=== PATIENT | male | born 1980 | race Two or more races ===

== ENCOUNTER 2019-12-28 14:47 | Inpatient (IN) | payer OTHER ==
[~2019-12-28] VITALS: Ht 190.5 cm; Wt 143.9 kg
[2019-12-28] MEDS ORDERED: SODIUM CHLORIDE 0.9% 1,000 ML IV ONE ×2 (15:00)
[2019-12-28] MEDS ORDERED: TAMSULOSIN HYDROCHLORIDE 0.4 MG CAP PO ONE (15:15)
[2019-12-28] MEDS ORDERED: ONDANSETRON HCL 4 MG/2 ML VIAL IV ONE (15:15)
[2019-12-28] MEDS ORDERED: KETOROLAC TROMETH 30 MG/ML 1ML VIAL IV ONE (15:15)
[2019-12-28 15:36] LABS: Basophils # (auto) 0.1 10 ^3/uL (0-0.2); Basophils % (auto) 0.5 % (0.0-2.0); Eosinophils # (auto) 0.3 10 ^3/uL (0-0.8); Eosinophils % (auto) 2.5 % (0.0-7.0); Hemoglobin 15.6 g/dL (13.5-17.5); Lymphocytes # (auto) 2.1 10 ^3/uL (0.4-5.4); Lymphocytes % (auto) 20.6 % (10.0-50.0); Mean Corpuscular Hemoglobin 30.7 pg (28.0-32.0); Mean Corpuscular Hgb Conc. 34.6 g/dL (32.0-36.0); Mean Corpuscular Volume 88.9 fL (80.0-100.0); Monocytes # (auto) 0.6 10 ^3/uL (0-1.3); Monocytes % (auto) 5.5 % (0.0-12.0); Neutrophils # (auto) 7.3 10 ^3/uL (1.6-8.6); Neutrophils % (auto) 70.9 % (37.0-80.0); Nucleated Red Blood Cells % 0.1 %; Platelet Count (auto) 192 10^3/uL (140-450); Red Blood Cells 5.06 10^6/uL (4.5-5.90); Red Cell Distribution Width 14.4 % (11.8-14.3); White Blood Cell 10.3 10^3/uL (4.4-10.8)
[2019-12-28 15:50] LABS: INR 1.01 (0.9-1.15); Partial Thromboplastin Time 32.2 sec (23.0-31.2)
[2019-12-28 15:58] LABS: Alanine Aminotransferase 37 U/L (16-61); Anion Gap 7 (5-15); Aspartate Aminotransferase 18 U/L (15-37); BUN/Creatinine Ratio 11.6; Blood Urea Nitrogen 10 mg/dL (7-18); Calcium 8.3 mg/dL (8.5-10.1); Carbon Dioxide 26 mmol/L (21-32); Chloride 106 mmol/L (98-107); GFR African American 129 mL/min; GFR Non-African American 106 mL/min; Glucose 96 mg/dL (74-106); Sodium 139 mmol/L (136-145)
[2019-12-28 16:04] LABS: Alkaline Phosphatase 109 U/L (45-117); Bilirubin, Total 0.6 mg/dL (0.2-1.0); Total Protein 7.9 g/dL (6.4-8.2)
[2019-12-28] MEDS ORDERED: D5W/SOD CHL 0.45% 1,000 ML IV ONE (17:15)
[2019-12-28] MEDS ORDERED: MORPHINE SULF INJ 2 MG/ML SYRINGE 1ML IV PRN (17:15)
[2019-12-28] MEDS ORDERED: NITROGLYCERIN 0.4 MG SL TAB SL PRN (17:15)
[2019-12-28] MEDS ORDERED: ACETAMINOPHEN 325 MG TAB PO PRN ×2 (17:15→20:30)
[2019-12-28] MEDS ORDERED: DEXTROSE (50%) 50ML SYRG IV PRN (20:30)
[2019-12-28 21:06] LABS: Urine Bacteria MOD /hpf (None Seen); Urine Blood Negative /uL (Negative); Urine Mucus FEW (None Seen); Urine WBC 47 /hpf (0 - 3)
[2019-12-28] MEDS: InsuLIN REG 1unit/0.01ml Soln (100units/ml) SC SCH (21:51)
[2019-12-28] MEDS: ACCU-CHEK COMFORT CURVE STRIP VI SCH (21:51)
[2019-12-28 22:03] VITALS: BP 136/86
[2019-12-29 05:00] VITALS: BP 116/69
[2019-12-29] MEDS: InsuLIN REG 1unit/0.01ml Soln (100units/ml) SC SCH ×4 (06:24→22:00)
[2019-12-29] MEDS: ACCU-CHEK COMFORT CURVE STRIP VI SCH ×4 (06:24→22:32)
--- NOTE | 2019-12-29 07:59 | NUR ---
ADMISSION 12/28/19 AT 1830 MS admit from ER KAREN,ULISES admitted to [facility]/MS after SBAR received LAST NIGHT AT 1830. Patient oriented to SARAHY CANDELARIO RN primary RN, broughton, 14, A,and unit policies regarding patient care and visiting hours. Patient weighed by bedscale and encouraged to call if they need something. All questions and concerns addressed, patient verbalized understanding.Patient was with guards.
[2019-12-29 09:00] VITALS: BP 130/81
[2019-12-29] MEDS ORDERED: metFORMIN HYDROCHLORIDE 500 MG TAB PO SCH (10:00)
[2019-12-29] MEDS ORDERED: levoFLOXacin 500MG 100 ML IV ONE (10:30)
[2019-12-29 12:53] VITALS: BP 125/70
[2019-12-29] MEDS: traMADol HCL 50 MG TAB PO PRN ×2 (14:06→22:34)
[2019-12-29] MEDS ORDERED: IOHEXOL 300 MG/ML 100ML BOTTLE IJ ONE (15:12)
[2019-12-29 16:30] VITALS: BP 128/73
[2019-12-29 22:00] VITALS: BP 131/79
--- NOTE | 2019-12-29 23:16 | NUR ---
MD [facility] PATIENT IS COMPLAINING OF PRURITUS ALL OVER BODY. PATIENT STATES "I AM ITCHING ALL OVER AND IT'S SLOWLY GETTING WORSE".
--- NOTE | 2019-12-29 23:40 | NUR ---
NEW ORDERS RECEIVED. WILL CARRY OUT ORDERS AND CONTINUE TO MONITOR
[2019-12-29] MEDS ORDERED: diphenhdrAMINE HCL 50 MG/1 ML VL IV PRN (23:45)
[2019-12-30 05:00] VITALS: BP 115/75
[2019-12-30] MEDS: ACCU-CHEK COMFORT CURVE STRIP VI SCH ×3 (06:43→18:33)
[2019-12-30] MEDS: InsuLIN REG 1unit/0.01ml Soln (100units/ml) SC SCH ×3 (06:44→17:00)
[2019-12-30 08:00] VITALS: BP 128/78
[2019-12-30 09:00] VITALS: BP 128/78
[2019-12-30] MEDS ORDERED: levoFLOXacin 500MG 100 ML IV SCH (10:00)
[2019-12-30] MEDS ORDERED: metFORMIN HYDROCHLORIDE 500 MG TAB PO SCH (12:00)
[2019-12-30 17:00] VITALS: BP 124/72
[2019-12-30] MEDS ORDERED: LEVO500T21 PO (18:11)
--- NOTE | 2019-12-30 21:17 | NUR ---
Discharge Patient being discharged back to halfway. Patient alert and oriented x4, with no s/s of distress or pain noted. IV access removed and prescription given to guards at bedside.
== END 2019-12-30 21:20 | DRG 690 ==
LOC: ER 14:47 → EEVIPCON 14:47 → CENTRAL 14:48
PROVIDERS: ADMIT Internal Medicine; ATTEND Internal Medicine
DX: N39.0 Urinary tract infection, site not specified (principal); R31.0 Gross hematuria; E86.0 Dehydration; K76.0 Fatty (change of) liver, not elsewhere classified; E11.9 Type 2 diabetes mellitus without complications; I10 Essential (primary) hypertension; E66.9 Obesity, unspecified; B96.29 Other Escherichia coli [E. coli] as the cause of diseases classified elsewhere; E78.00 Pure hypercholesterolemia, unspecified; J45.909 Unspecified asthma, uncomplicated; Z68.39 Body mass index [BMI] 39.0-39.9, adult; Z83.3 Family history of diabetes mellitus; Z79.84 Long term (current) use of oral hypoglycemic drugs; R16.0 Hepatomegaly, not elsewhere classified
CPT/HCPCS: 36415; 71046; 74176; 74177; 80053; 81001; 82962; 84484; 85025; 85610; 85730; 87086; 87088; 87186; G0378; J1956